=== PATIENT | male | born 1955 ===

== ENCOUNTER → 2021-04-12 | Outpatient (CLI) | payer OTHER ==
[~2021-04-12] MED LIST: HYDROCODONE; OLME20 PO; UNKNOWN PAIN MED PO
[2021-04-12 14:43] LABS: Microalb/Creat Ratio UR, Rand Unable to Calculate mg/g (0.000-30.000); Microalbumin, Random Urine <5.000 mg/L (0.000-20.000)
== END | disposition home or self-care (01) ==
LOC: LAB SHORT 11:40
PROVIDERS: Nurse Practitioner Family
DX: E11.65 Type 2 diabetes mellitus with hyperglycemia (principal)
CPT/HCPCS: 82043; 82570

== ENCOUNTER 2024-12-10 03:44 | Day surgery (SDC) | payer OTHER ==
[2024-12-10] MEDS ORDERED: Lidocaine HCl 4% Cream 5 GM ONE (12:10)
== END 2024-12-10 23:00 | disposition home or self-care (01) ==
LOC: WOUND 03:44
DX: R58 Hemorrhage, not elsewhere classified (principal); E11.40 Type 2 diabetes mellitus with diabetic neuropathy, unspecified
CPT/HCPCS: A9270; G0463